=== PATIENT | female | born 1995 | race Caucasian/White ===

== ENCOUNTER 2017-06-04 18:20 | Emergency (ER) | payer OTHER ==
[~2017-06-04] VITALS: Ht 182.9 cm; Wt 99.8 kg
[~2017-06-04 18:20] MED LIST: HYOS0.1283 PO
[2017-06-04 20:46] VITALS: BP 140/86
[2017-06-04] MEDS ORDERED: IBUPROFEN 600 MG TAB PO ONE (22:30)
== END 2017-06-04 22:52 | disposition home or self-care (01) ==
LOC: ER 18:49
DX: S93.401A Sprain of unspecified ligament of right ankle, initial encounter (principal); Z90.49 Acquired absence of other specified parts of digestive tract; Z79.899 Other long term (current) drug therapy; W01.0XXA Fall on same level from slipping, tripping and stumbling without subsequent striking against object, initial encounter; Y93.89 Activity, other specified; Y92.89 Other specified places as the place of occurrence of the external cause; Y99.0 Civilian activity done for income or pay
CPT/HCPCS: 73600